=== PATIENT | male | born 1930 | race Caucasian/White ===

== ENCOUNTER 2016-10-02 01:16 | Emergency (ER) | payer MEDICARE, OTHER ==
[2016-10-02 01:24] VITALS: TEMP 98.5
[2016-10-02] MEDS ORDERED: NS 1,000 ML IV ONE (01:32)
--- NOTE | 2016-10-02 01:34 | EDPRACDOC ---
- General Information Chief Complaint: Abdominal Pain Stated Complaint: RT SIDE PAIN Time Seen by Provider: 10/02/16 01:28 Mode Of Arrival: Car Home Medications: Home Medications Enalapril Maleate [Vasotec] 10 mg PO DAILY 09/09/15 Finasteride [Proscar] 5 mg PO DAILY 09/09/15 Tamsulosin HCl [Flomax] 0.4 mg PO DAILY 09/09/15 Warfarin Sodium [Coumadin] 6.5 mg PO .SEE COMMENTS 09/25/15 Enoxaparin Sodium [Lovenox] 75 mg SQ BID 01/23/16 Loratadine 10 mg PO DAILY 01/23/16 Prednisone [Deltasone, Orasone] 40 mg PO DAILY 5 Days 01/23/16 Nitrofurantoin [Macrobid] 100 mg PO BID #14 cap 10/02/16 Probiotic Blend [Jeaneth Q] 1 each PO DAILY #30 tab 10/02/16 Allergies/Adverse Reactions: Allergies Allergy/AdvReac Type Severity Reaction Status Date / Time atorvastatin calcium Allergy Unknown Verified 10/02/16 01:22 [From Lipitor] Penicillins Allergy Hives* Verified 10/02/16 01:22 - History of Present Illness Onset: 4 hours HPI: PT HAS BEEN HAVING RUQ PAIN FOR ABOUT 4 HRS. THE PT SAID THAT HE HAS NEVER HAD ANYTHING LIKE THIS IN THE PAST. Pain Location: Reports: RUQ Pain Context: Reports: Spontaneous Pain Severity: Mild Pain Quality: Reports: Sharp Pain Radiation: Reports: No Radiation Adult Abdominal History: Denies: Abdominal Surgery, Bowel Obstruction Modifying Factors: improves with: Nothing Associated Signs & Symptoms: Reports: Nausea Oral Intake: Decreased Urinary Output: Decreased ED Past Medical History - Patient Medical History Neurological History: Denies: Cerebrovascular Accident, Seizures, Dementia, Epilepsy, [place] Syndrome, Parkinson's, Multiple Sclerosis, Myasthenia Gravis Cardiac History: Reports: Coronary Artery Disease, Atrial Fibrillation, Cardiac Catheterization (1993), CABG, Valvular Heart Disease. Denies: Hypertension, Congestive Heart Failure, Heart Attack, Cardiomyopathy, Syncope GI/ History: Reports: Urinary Tract Infection, Kidney Stones. Denies: Renal Disease, Renal Failure, Kidney (Renal Surgery), Liver Failure, Ulcer, Pancreatitis Musculoskeletal History: Reports: Arthritis, Gout (hx), Osteoarthritis. Denies : Rheumatoid Arthritis Systemic History: Denies: Cancer, Anemia, Lupus Surgical History: Reports: CABG, Cardiac Catheterization (1993), Tonsillectomy/ Adnoidectomy, Other (2 VALVE REPLACEMENT). Denies: Hysterectomy, Angioplasty, Hernia Surgery - Family Medical History Reports: Hypertension (Spouse), Stroke (TIA's - Spouse). Denies: Diabetes, Cancer, Cardiac Disorders - Social Medical History Smoking Status: Former smoker ETOH: None Substance Abuse: None Lives In: Home EDM Review of Systems - Review of Systems ROS Negative Except as Marked: Yes All systems reviewed and were negative except as marked Gastrointestinal: Pain - Physical Exam Constitutional: Alert (Awake), No apparent distress Oriented to: Time, Person, Place Last recorded Vital Signs: Last Vital Signs Temp 98.5 F 10/02/16 01:22 Pulse 79 10/02/16 04:19 Resp 20 10/02/16 04:19 BP 152/65 10/02/16 04:19 Pulse Ox 96 10/02/16 04:19 Oxygen Pulse Oxygen Saturation 96 O2 Device Room Air Oxygen Flow Rate Fraction of Inspired Oxygen ( FIO2) - HEENT Head: Normal ( normocephalic) Eye Exam: Normal (PERRL, EOMI, Sclera white) Oropharynx: Membranes Dry ENT EAC: Normal TMJ: Normal Nose: No Symptoms Reported (septum midline) Neck: Normal (FROM, trachea at midline) - Respiratory/Cardiovascular Respiratory: Normal - CTA (BBS clear to auscultation without adventitious sounds ) Cardiovascular: Irregular, Systolic murmur - GI Auscultation: Normal (NABS) Palpation: Normal (Soft,No rebound or guarding, non distended) Tenderness: Mild, RUQ Gallagher's Sign: Negative - Musculoskeletal Back: Normal (Non-Tender) Extremities: Normal (Normal tone, Pulses 2+ No cyanosis or edema, FROM) - Integumentary Skin: Normal, Warm, Dry Lymphatics: Normal (no adenopathy) - Neurologic Memory Impaired: Normal Motor Function: Normal (Normal tone, Pulses 2+ No cyanosis or edema, FROM) Cranial Nerve: Normal (CN II-X11 intact sensation, strength 5/5) Cerebellar: Normal Mood Description: Normal Thought: Coherent Perception: Normal - Results 10/02/16 01:35 10/02/16 01:35 WBC 3.9 xk/uL (3.8-10.8) 10/02/16 01:35 RBC 3.38 xM/uL (4.70-6.10) L 10/02/16 01:35 Hgb 10.4 g/dL (14.0-18.0) L 10/02/16 01:35 Hct 31.0 % (42-52) L 10/02/16 01:35 MCV 92 fL (80-94) 10/02/16 01:35 MCH 30.7 pg (27-32) 10/02/16 01:35 MCHC 33.4 g/dl (33-36) 10/02/16 01:35 RDW 14.9 % (11.5-14.5) H 10/02/16 01:35 Plt Count 131 xk/uL (130-400) 10/02/16 01:35 MPV 8.3 fL (7.4-10.4) 10/02/16 01:35 Neut % (Auto) Cancelled 10/02/16 01:35 Lymph % (Auto) Cancelled 10/02/16 01:35 [place] % (Auto) Cancelled 10/02/16 01:35 Eos % (Auto) Cancelled 10/02/16 01:35 Baso % (Auto) Cancelled 10/02/16 01:35 Absolute Neuts (auto) Cancelled 10/02/16 01:35 Absolute Lymphs (auto) Cancelled 10/02/16 01:35 Seg Neuts % (Manual) 79 % (45-76) H 10/02/16 01:35 Band Neutrophils % 4 % (0-5) 10/02/16 01:35 Lymphocytes % (Manual) 14 % (17-44) L 10/02/16 01:35 Monocytes % (Manual) 2 % (0-10) 10/02/16 01:35 Basophils % (Manual) 1 % (0-2) 10/02/16 01:35 Absolute Neutrophils 3.24 xk/uL (1.7-8.2) 10/02/16 01:35 Absolute Lymphocytes 0.55 xk/uL (0.65-4.75) L 10/02/16 01:35 Platelet Estimate Norm (NORMAL) 10/02/16 01:35 RBC Morphology 1+ aniso 10/02/16 01:35 PT 57.1 SEC (9.2-11.2) H 10/02/16 01:35 INR 5.5 H* 10/02/16 01:35 APTT 54.8 SEC (22-35) H 10/02/16 01:35 Sodium 141 mEq/L (137-146) 10/02/16 01:35 Potassium 4.9 mEq/L (3.5-5.1) 10/02/16 01:35 Chloride 111 mEq/L (98-107) H 10/02/16 01:35 Carbon Dioxide 18 mMOL/L (22-33) L 10/02/16 01:35 Anion Gap 17 mEq/L (8-16) H 10/02/16 01:35 BUN 42 MG/DL (9-20) H 10/02/16 01:35 Creatinine 1.50 MG/DL (0.66-1.25) H 10/02/16 01:35 Estimated GFR (MDRD) 44 mL/min (>=60) L 10/02/16 01:35 Glucose 95 MG/DL (70-99) 10/02/16 01:35 Calculated Osmolality 282 MOs/Kg (270-290) 10/02/16 01:35 Calcium 9.7 MG/DL (8.4-10.2) 10/02/16 01:35 Total Bilirubin 0.8 MG/DL (0.2-1.3) 10/02/16 01:35 AST 29 IU/L (17-59) 10/02/16 01:35 ALT 35 IU/L (21-72) 10/02/16 01:35 Alkaline Phosphatase 72 IU/L (50-160) 10/02/16 01:35 Troponin I 0.03 ng/mL (<.04) 10/02/16 01:35 Total Protein 7.8 G/DL (6.3-8.2) 10/02/16 01:35 Albumin 4.1 G/DL (3.5-5.0) 10/02/16 01:35 Lipase 187 U/L (23-300) 10/02/16 01:35 TSH < 0.02 uIU/mL (0.5-4.67) L 10/02/16 01:35 Free T4 1.67 ng/dL (0.78-2.19) 10/02/16 01:35 Free T3 4.03 pg/mL (2.77-5.27) 10/02/16 01:35 Urine Color Emma 10/02/16 01:48 Urine Clarity Cldy 10/02/16 01:48 Urine pH 5.0 (5.0-8.0) 10/02/16 01:48 Ur Specific [place] 1.010 (1.003-1.035) 10/02/16 01:48 Urine Protein 2+ (NEG/TRACE) H 10/02/16 01:48 Urine Glucose (UA) Neg (NEGATIVE) 10/02/16 01:48 Urine Ketones Neg (NEGATIVE) 10/02/16 01:48 Urine Occult Blood 1+ (NEG/TRACE) H 10/02/16 01:48 Urine Nitrite Neg (NEGATIVE) 10/02/16 01:48 Urine Bilirubin Neg (NEGATIVE) 10/02/16 01:48 Urine Urobilinogen <2.0 MG/DL (0-1) 10/02/16 01:48 Ur Leukocyte Esterase 2+ (NEGATIVE) H 10/02/16 01:48 Urine RBC Tntc (0-2) H 10/02/16 01:48 Urine WBC Tntc (0-2) H 10/02/16 01:48 Urine WBC Clumps Present (NONE) H 10/02/16 01:48 Urine Bacteria Few (NEG/FEW) 10/02/16 01:48 Urine Yeast Mod (NONE) H 10/02/16 01:48 Lab Results 10/02/16 10/02/16 10/02/16 01:48 01:35 01:35 WBC RBC Hgb Hct MCV MCH MCHC RDW Plt Count MPV Neut % (Auto) Lymph % (Auto) [place] % (Auto) Eos % (Auto) Baso % (Auto) Absolute Neuts (auto) Absolute Lymphs (auto) Seg Neuts % (Manual) Band Neutrophils % Lymphocytes % (Manual) Monocytes % (Manual) Basophils % (Manual) Absolute Neutrophils Absolute Lymphocytes Platelet Estimate RBC Morphology PT 57.1 H INR 5.5 H* APTT 54.8 H Sodium Potassium Chloride Carbon Dioxide Anion Gap BUN Creatinine Estimated GFR (MDRD) Glucose Calculated Osmolality Calcium Total Bilirubin AST ALT Alkaline Phosphatase Troponin I Total Protein Albumin Lipase TSH < 0.02 L Free T4 1.67 Free T3 4.03 Urine Color Emma Urine Clarity Cldy Urine pH 5.0 Ur Specific [place] 1.010 Urine Protein 2+ H Urine Glucose (UA) Neg Urine Ketones Neg Urine Occult Blood 1+ H Urine Nitrite Neg Urine Bilirubin Neg Urine Urobilinogen <2.0 Ur Leukocyte Esterase 2+ H Urine RBC Tntc H Urine WBC Tntc H Urine WBC Clumps Present H Urine Bacteria Few Urine Yeast Mod H 10/02/16 10/02/16 01:35 01:35 WBC 3.9 RBC 3.38 L Hgb 10.4 L Hct 31.0 L MCV 92 MCH 30.7 MCHC 33.4 RDW 14.9 H Plt Count 131 MPV 8.3 Neut % (Auto) Cancelled Lymph % (Auto) Cancelled [place] % (Auto) Cancelled Eos % (Auto) Cancelled Baso % (Auto) Cancelled Absolute Neuts (auto) Cancelled Absolute Lymphs (auto) Cancelled Seg Neuts % (Manual) 79 H Band Neutrophils % 4 Lymphocytes % (Manual) 14 L Monocytes % (Manual) 2 Basophils % (Manual) 1 Absolute Neutrophils 3.24 Absolute Lymphocytes 0.55 L Platelet Estimate Norm RBC Morphology 1+ aniso PT INR APTT Sodium 141 Potassium 4.9 Chloride 111 H Carbon Dioxide 18 L Anion Gap 17 H BUN 42 H Creatinine 1.50 H Estimated GFR (MDRD) 44 L Glucose 95 Calculated Osmolality 282 Calcium 9.7 Total Bilirubin 0.8 AST 29 ALT 35 Alkaline Phosphatase 72 Troponin I 0.03 Total Protein 7.8 Albumin 4.1 Lipase 187 TSH Free T4 Free T3 Urine Color Urine Clarity Urine pH Ur Specific [place] Urine Protein Urine Glucose (UA) Urine Ketones Urine Occult Blood Urine Nitrite Urine Bilirubin Urine Urobilinogen Ur Leukocyte Esterase Urine RBC Urine WBC Urine WBC Clumps Urine Bacteria Urine Yeast - EKG EKG #1 EKG Time: 02:10 -: Yes EKG interpreted by me Rate: bpm: 69 Rhythm: Afib, PVCs Hypertrophy: LVH ST: New, Lat, Ischemia Comparison: 01/23/16 - Diagnostic Imaging Chest Image interpreted by: Radiologist 10/02/16 02:49 No evidence of active pulmonary disease. Cardiac enlargement with particular enlargement of the right atrium. Right peritracheal mass corresponds with enlarged thyroid goiter. Abdomen Image interpreted by: Radiologist 10/02/16 03:20 1. Bladder irregularly thick walled, raising question for chronic inflammation. Acute cystitis cannot be excluded. Would correlate with the patient's symptoms. Scattered small diverticula along the periphery of the bladder. 2. Mildly heterogeneous appearance of the liver likely reflects some degree of venous congestion. 3. Cardiomegaly, with biatrial enlargement. Dense calcification at the mitral and aortic valves. Diffuse coronary artery calcifications seen. 4. Bilateral renal cysts noted. 5. Relatively diffuse calcification along the abdominal aorta and its branches. 6. Impression on the base of the bladder by the enlarged prostate. 7. Mild chronic loss of height at the superior endplate of L1. - Additional Information PT SAID THAT HE SELF CATHS TID. NO UTI IN ABOUT 6 MONTHS. FAMILY REQUESTS NO CIPRO Decision Time to Discharge: 03:26 - Departure Yes I personally saw and evaluated the patient. Disposition: Home Condition: Fair Final Diagnosis: Abdominal pain, UTI (urinary tract infection), Anticoagulated on Coumadin, Thyroid goiter, CRI (chronic renal insufficiency), Hyperthyroidism Instructions: Urinary Tract Infection in Men (ED) Education/Counseling Given To: Patient, Family Member Education/Counseling Given Regarding: Diagnosis, Treatment, Follow Up Referrals: Pepe Lozano MD [Primary Care Provider] - One Week Miugel Hardy MD [Staff Physician] - One Week Hira Peters MD [NonStaff] - One Week Prescriptions: New Probiotic Blend [Jeaneth Q] 1 each PO DAILY #30 tab Nitrofurantoin [Macrobid] 100 mg PO BID #14 cap No Action Tamsulosin HCl [Flomax] 0.4 mg PO DAILY Finasteride [Proscar] 5 mg PO DAILY Enalapril Maleate [Vasotec] 10 mg PO DAILY Warfarin Sodium [Coumadin] 6.5 mg PO .SEE COMMENTS Enoxaparin Sodium [Lovenox] 75 mg SQ BID Loratadine 10 mg PO DAILY Prednisone [Deltasone, Orasone] 40 mg PO DAILY 5 Days Additional Instructions: DO NOT TAKE COUMADIN 10/02 OR 10/03. KEEP YOUR APPT TO GET INR CHECKED ON 10/04. PCP TO RECHECK TSH
[2016-10-02 01:45] LABS: MPV 8.3 fL (7.4-10.4)
[2016-10-02 01:54] LABS: BLOOD UREA NITROGEN 42 MG/DL (9-20); CALCIUM 9.7 MG/DL (8.4-10.2); CALCULATED OSMOLALITY 282 MOs/Kg (270-290); CHLORIDE 111 mEq/L (98-107); GLUCOSE 95 MG/DL (70-99); SODIUM LEVEL 141 mEq/L (137-146); TOTAL PROTEIN 7.8 G/DL (6.3-8.2)
[2016-10-02] MEDS ORDERED: Pharmacy Review for Metformin - IV Contrast Given SCH (02:00)
[2016-10-02 02:07] LABS: PARTIAL THROMB. TIME 54.8 SEC (22-35)
[2016-10-02 02:08] LABS: LEUKOCYTES/URINE 2+ (NEGATIVE); NITRITE/URINE NEG (NEGATIVE); RBC/URINE TNTC (0-2); URINE OCCULT BLOOD 1+ (NEG/TRACE); WBC/URINE TNTC (0-2)
[2016-10-02 02:10] LABS: PT-INR 5.5; SEG NEUTROPHIL 79 % (45-76)
--- NOTE | 2016-10-02 02:47 | DIRPT ---
CLINICAL DATA: Right-sided chest pain. Sudden onset this evening. EXAM: PORTABLE CHEST 1 VIEW COMPARISON: CT chest 03/03/2011 FINDINGS: Postoperative changes in the mediastinum. Cardiac enlargement with enlarged right atrium. This was present on the previous CT study. Pulmonary vascularity is normal. No focal airspace disease or consolidation in the lungs. No blunting of costophrenic angles. No pneumothorax. Right paratracheal mass corresponding to enlarged thyroid goiter on prior CT. IMPRESSION: No evidence of active pulmonary disease. Cardiac enlargement with particular enlargement of the right atrium. Right peritracheal mass corresponds with enlarged thyroid goiter. Electronically Signed By: Mu Sauer M.D. On: 10/02/2016 02:45
--- NOTE | 2016-10-02 03:18 | DIRPT ---
CLINICAL DATA: Acute onset of right lower quadrant abdominal pain. Initial encounter. EXAM: CT ABDOMEN AND PELVIS WITH CONTRAST TECHNIQUE: Multidetector CT imaging of the abdomen and pelvis was performed using the standard protocol following bolus administration of intravenous contrast. CONTRAST: 100 mL of Isovue 370 IV contrast COMPARISON: None. FINDINGS: The visualized lung bases are clear. Cardiomegaly is noted, with biatrial enlargement. Dense calcification is noted at the mitral and aortic valves. Diffuse coronary artery calcifications are seen. A mildly heterogeneous appearance of the liver likely reflects some degree of venous congestion. A small calcified granuloma is noted within the spleen. The liver and spleen are otherwise unremarkable. The gallbladder is within normal limits. The pancreas and adrenal glands are unremarkable. Mild nonspecific perinephric stranding is noted bilaterally. Bilateral renal cysts measure up to 3.6 cm in size. There is no evidence of hydronephrosis. No renal or ureteral stones are identified. No free fluid is identified. The small bowel is unremarkable in appearance. The stomach is within normal limits. No acute vascular abnormalities are seen. Relatively diffuse calcification is noted along the abdominal aorta and its branches. The appendix is not well seen; there is no evidence of appendicitis. The colon is largely decompressed and is unremarkable in appearance. The bladder is mildly distended and irregularly thick-walled, raising question for chronic inflammation. Acute cystitis cannot be excluded. Scattered small diverticula are noted along the periphery of the bladder. There is impression on the base of the bladder by the patient's enlarged prostate, measuring 5.0 cm in transverse dimension. No inguinal lymphadenopathy is seen. No acute osseous abnormalities are identified. There is chronic disc space narrowing at L5-S1, and minimal grade 1 anterolisthesis of L4 on L5. Underlying facet disease is noted. There is chronic loss of height involving the superior endplate of vertebral body L1. IMPRESSION: 1. Bladder irregularly thick walled, raising question for chronic inflammation. Acute cystitis cannot be excluded. Would correlate with the patient's symptoms. Scattered small diverticula along the periphery of the bladder. 2. Mildly heterogeneous appearance of the liver likely reflects some degree of venous congestion. 3. Cardiomegaly, with biatrial enlargement. Dense calcification at the mitral and aortic valves. Diffuse coronary artery calcifications seen. 4. Bilateral renal cysts noted. 5. Relatively diffuse calcification along the abdominal aorta and its branches. 6. Impression on the base of the bladder by the enlarged prostate. 7. Mild chronic loss of height at the superior endplate of L1. Electronically Signed By: Gio Benson M.D. On: 10/02/2016 03:16
[2016-10-02] MEDS ORDERED: CEFTRIAXONE 1 GM in D5W 100 ML IV ONE (03:24)
[2016-10-02 03:30] LABS: FREE T3 4.03 pg/mL (2.77-5.27); FREE T4 1.67 ng/dL (0.78-2.19)
[2016-10-02 03:43] LABS: hTSH < 0.02 uIU/mL (0.5-4.67)
[2016-10-02 04:20] VITALS: BP 152/65; PULSE 79
== END 2016-10-02 04:35 | disposition home or self-care (01) ==
LOC: ED 01:16
DX: N39.0 Urinary tract infection, site not specified (principal); E04.9 Nontoxic goiter, unspecified; N18.9 Chronic kidney disease, unspecified; E05.90 Thyrotoxicosis, unspecified without thyrotoxic crisis or storm; Z79.01 Long term (current) use of anticoagulants
CPT/HCPCS: 36415; 71010; 74177; 80053; 81001; 83690; 84439; 84443; 84481; 84484; 85007; 85027; 85610; 85730; 87086; 93005; 96361; 96365; 99283; A9698; J0696; J7060